=== PATIENT | male | born 1990 | race Caucasian/White ===

== ENCOUNTER 2017-04-10 02:33 | Emergency (ER) | payer BC ==
[~2017-04-10] VITALS: Ht 190.5 cm; Wt 101.2 kg
--- NOTE | 2017-04-10 02:35 | NUR ---
Patient to ER bed 8 to gown for evaluation. Side rails up. Report given to Henry MENDEZ.
[2017-04-10 02:38] VITALS: BP_SYST 124
--- NOTE | 2017-04-10 02:40 | NUR ---
Pt has had sore throat for a few days. Will continue to monitor. No distress noted.
--- NOTE | 2017-04-10 03:10 | NUR ---
ER Dr. Kingston at bedside examining patient.
--- NOTE | 2017-04-10 03:39 | NUR ---
Patient given written and verbal discharge instructions and verbalizes understanding. ER MD discussed with patient the results and treatment provided. Patient in stable condition. ID arm band removed. Rx of Biaxin given. Patient educated on pain management and to follow up with PMD. Pain Scale 2/10. Opportunity for questions provided and answered.
[2017-04-10 03:40] VITALS: BP_SYST 124
== END 2017-04-10 03:40 | disposition home or self-care (01) ==
LOC: SED 02:33
DX: J02.9 Acute pharyngitis, unspecified (principal); Z88.0 Allergy status to penicillin
CPT/HCPCS: 99283